=== PATIENT | female | born 1945 | race Caucasian/White ===

== ENCOUNTER → 2017-09-19 | Outpatient (CLI) | payer OTHER | LOC: BRMIMAGING 12:42 | PROVIDERS: ATTEND Physician Assistant Medical | DX: Z12.31 Encounter for screening mammogram for malignant neoplasm of breast (principal); Z13.820 Encounter for screening for osteoporosis; M81.0 Age-related osteoporosis without current pathological fracture ==

== ENCOUNTER → 2017-09-22 | Outpatient (CLI) | payer OTHER | LOC: BRMIMAGING 09:37 | PROVIDERS: ATTEND Physician Assistant Medical | DX: R92.0 Mammographic microcalcification found on diagnostic imaging of breast (principal) ==

== ENCOUNTER → 2018-03-22 | Outpatient (CLI) | payer OTHER | DX: R92.0 Mammographic microcalcification found on diagnostic imaging of breast (principal) ==